=== PATIENT | female | born 1945 | race Two or more races ===

== ENCOUNTER → 2019-05-09 | Outpatient (CLI) | payer OTHER ==
--- NOTE | 2019-05-09 17:23 | Diagnostic Imaging Report ---
EXAM: CT Chest WITHOUT intravenous contrast 05/09/2019 1:11 PM INDICATION: Cough COMPARISON: None TECHNIQUE: Chest was scanned utilizing a multidetector helical scanner from the lung apex through the level of the adrenal glands without administration of IV contrast. Coronal and sagittal reformations were obtained. Routine protocol was performed. IV CONTRAST: None RADIATION DOSE: Total DLP: 469.7 mGy*cm. Dose modulation, iterative reconstruction, and/or weight based adjustment of the mA/kV was utilized to reduce the radiation dose to as low as reasonably achievable. COMPLICATIONS: None FINDINGS: LINES/ TUBES: None. LUNGS AND AIRWAYS: The central airways are patent. No focal consolidation or pulmonary edema. No suspicious pulmonary nodules. PLEURA: No pleural effusion or pneumothorax. HEART AND MEDIASTINUM: Heterogeneous enlargement of the left thyroid lobe. No supraclavicular, mediastinal, or hilar lymphadenopathy. No axillary, subpectoral, or internal mammary lymphadenopathy. The heart is not enlarged. No pericardial effusion. Mild after cirrhotic calcifications of the thoracic aorta. UPPER ABDOMEN: Limited noncontrast enhanced images of the upper abdomen demonstrate no focal abnormality of the partially visualized liver, spleen, pancreas, adrenals, or right kidney. There is a 3.0 cm cyst of the midpole of the left kidney. Calcified gallstone in the gallbladder measures up to 3.[address] evidence of cholecystitis. BONES: No acute osseous injury. No suspicious lytic or blastic lesions. SOFT TISSUES: Unremarkable. IMPRESSION: No focal pneumonia or pulmonary edema. Cholelithiasis without CT evidence of cholecystitis. Signed by: Zena Kent MD on 05/09/2019 5:19 PM
== END ==
LOC: RAD 12:57
PROVIDERS: ATTEND Family Medicine
DX: R05 Cough (principal); I51.7 Cardiomegaly
CPT/HCPCS: 71250; 93306

== ENCOUNTER → 2020-09-19 | Outpatient (CLI) | payer MEDICARE | LOC: MRI 09:44 | PROVIDERS: ATTEND Family Medicine | DX: M54.12 Radiculopathy, cervical region (principal) | CPT/HCPCS: 72141 ==